=== PATIENT | female | born 1960 | race Two or more races ===

== ENCOUNTER 2024-07-23 10:59 | Emergency (ER) | payer OTHER ==
[~2024-07-23] VITALS: Ht 160 cm; Wt 59.0 kg
[2024-07-23] MEDS ORDERED: BENICAR20 MG PO (11:40)
[2024-07-23] MEDS ORDERED: HORIZANT300 MG PO (11:40)
[2024-07-23] MEDS ORDERED: TRINTELLIX10 MG PO (11:40)
[2024-07-23] MEDS ORDERED: BUSPIRONE HCL7.5 MG PO (11:41)
[2024-07-23] MEDS ORDERED: KETOROLAC TROMETHAMINE 60 MG VIAL IM STA (12:28)
[2024-07-23] MEDS ORDERED: KETO10TA2 PO (15:12)
== END 2024-07-23 15:44 | disposition home or self-care (01) ==
LOC: ER 11:01
DX: S93.492A Sprain of other ligament of left ankle, initial encounter (principal); W19.XXXA Unspecified fall, initial encounter; Y93.89 Activity, other specified; Y92.89 Other specified places as the place of occurrence of the external cause; Y99.8 Other external cause status; M25.572 Pain in left ankle and joints of left foot; I10 Essential (primary) hypertension; Z88.0 Allergy status to penicillin
CPT/HCPCS: 29505; 73610; 73630; 96372; 99283; J1885